=== PATIENT | female | born 1950 | race American Indian/Alaskan Native ===

== ENCOUNTER 2016-12-18 21:16 | Emergency (ER) | payer MEDICARE, OTHER ==
[2016-12-18 21:42] VITALS: BP 156/85; PULSE 84; RESP 18; TEMP 98.6; O2SAT 98
[2016-12-18 22:51] LABS: RBC URINE 207 /hpf (0-3); URINE BACTERIA RARE (<OCC); URINE BILIRUBIN NEGATIVE (NEGATIVE); URINE BLOOD LARGE (NEGATIVE); URINE COLOR YELLOW (YELLOW); URINE GLUCOSE (UA) NEG (Normal); URINE KETONE NEGATIVE (NEGATIVE); URINE LEUKOCYTE ESTERASE LARGE Leu/uL (Negative); URINE PROTEIN 30 mg/dL (NEGATIVE); URINE UROBILINOGEN 0.2-1.0 mg/dL (0.2-1.0); WBC URINE 56 /hpf (0-5)
--- NOTE | 2016-12-18 22:56 | ED PDOC ---
HPI: Female Pain Time Seen by Provider: 12/18/16 21:56 Chief Complaint (Nursing): Female Genitourinary Chief Complaint (Provider): uti History Per: Patient History/Exam Limitations: no limitations Onset/Duration Of Symptoms: Days Current Symptoms Are (Timing): Still Present Quality Of Discomfort: Cramping (suprapubic) Associated Symptoms: Nausea (x1d), Urinary Symptoms. denies: Fever, Chills, Vomiting, Diarrhea, Loss Of Appetite, Back Pain, Constipation Alleviating Factors: None Abnormal Vaginal Bleeding: No Past Medical History Reviewed: Historical Data, Nursing Documentation, Vital Signs Vital Signs: Last Vital Signs Temp 98.6 F 12/18/16 21:39 Pulse 84 12/18/16 21:39 Resp 18 12/18/16 21:39 BP 156/85 H 12/18/16 21:39 Pulse Ox 98 12/18/16 21:39 - Medical History PMH: HTN - Family History Family History: States: No Known Family Hx - Home Medications Home Medications: Ambulatory Orders Medication Instructions Recorded Nitrofurantoin Macrocrystals 100 mg PO BID #14 cap 12/18/16 [Macrobid] Nitrofurantoin Monohyd/M-Cryst 100 mg PO BID #14 cap 12/18/16 [Nitrofurantoin Monohydrate/Macrocrystals] - Allergies Allergies/Adverse Reactions: Allergies Allergy/AdvReac Type Severity Reaction Status Date / Time No Known Allergies Allergy Unverified 05/01/14 10:52 Review of Systems ROS Statement: Except As Marked, All Systems Reviewed And Found Negative Constitutional: Negative for: Fever, Chills Respiratory: Negative for: Cough, Shortness of Breath Gastrointestinal: Positive for: Abdominal Pain. Negative for: Nausea, Vomiting Genitourinary Female: Positive for: Dysuria Physical Exam - Reviewed Nursing Documentation Reviewed: Yes Vital Signs Reviewed: Yes - Physical Exam Appears: Positive for: Well, Non-toxic, No Acute Distress Head Exam: Positive for: ATRAUMATIC, NORMAL INSPECTION, NORMOCEPHALIC Skin: Positive for: Normal Color, Warm, DRY Cardiovascular/Chest: Positive for: Regular Rate, Rhythm Respiratory: Positive for: CNT, Normal Breath Sounds Gastrointestinal/Abdominal: Positive for: Bowel Sounds, Soft, Tenderness ( suprapubic ) Back: Positive for: Normal Inspection Extremity: Positive for: Normal ROM Neurologic/Psych: Positive for: Alert, Oriented - ECG O2 Sat by Pulse Oximetry: 98 - Progress ED Course And Treament: UA/upreg Re-evaluation Time: 23:02 Condition: Re-examined (stable appearing. no complaints ) Medical Decision Making Medical Decision Making: UA:shows UTI. will Rx macrobid and prydium Disposition - Clinical Impression Clinical Impression: UTI (urinary tract infection) - Patient ED Disposition Is Patient to be Admitted: No Counseled Patient/Family Regarding: Studies Performed, Diagnosis, Need For Followup, Rx Given - Disposition Disposition: Routine/Home Disposition Time: 23:07 Condition: STABLE Prescriptions: Nitrofurantoin Macrocrystals [Macrobid] 100 mg PO BID #14 cap Nitrofurantoin Monohyd/M-Cryst [Nitrofurantoin Monohydrate/Macrocrystals] 100 mg PO BID #14 cap Instructions: Urinary Tract Infection in Women (ED)
== END 2016-12-18 23:31 | disposition home or self-care (01) ==
LOC: H.ER 21:16
DX: N39.0 Urinary tract infection, site not specified (principal); I10 Essential (primary) hypertension